=== PATIENT | male | born 1940 | race Caucasian/White ===

== ENCOUNTER → 2019-01-24 | Outpatient (CLI) | payer MEDICARE, BC ==
--- NOTE | 2019-01-24 17:40 | CONS ---
Consult Date/Type/Reason Admit Date/Time Initial Consult Date Date/Time of Note DATE: 01/24/19 TIME: 17:34 Subjective 78-year-old male 8 months status post retrograde femoral nail for distal femur fracture with intercondylar extension. Patient returns today with pain along the knee and distal femur. This has been ongoing since the original surgery. At previous visits it was believed that this was likely secondary to symptomatic hardware. He continues to have balance issues and is seeing a neurologist for this. He recently had a brain MRI. Waiting for those results. Patient's pain is along the sides of his knee and when ambulating. He feels that things are catching. No significant knee swelling. No fevers or chills. Objective Vitals Weight: 192 Height: 5 feet 11 inches Temperature: 97.9 Heart Rate: 52 Blood Pressure: 144/71 Respiratory Rate: 16 Exam General: Awake, alert, in no acute distress, pleasant and cooperative Heart: regular rhythm Lungs: breathing comfortably, no tachypnea or dyspnea MUSCULOSKELETAL: Right lower extremity: Multiple well-healed incisions over the distal femur. No erythema. No swelling. No signs of infection. Tender to palpation along distal screws and bolts. Knee range of motion is 0-100 degrees. No pain with his range of motion. Sensation decreased which is his baseline to light touch in a sural, saphenous, deep peroneal, superficial peroneal, medial and lateral plantar nerve distribution. Motor is intact, patient able to dorsiflex and plantarflex ankle and extend and flex great toe. Dorsalis Pedis pulse +2, Brisk capillary refill. Compartments are soft. Calves non-tender to palpation bilaterally. Results/Medications Imaging AP and lateral of the right femur and AP, lateral, oblique of the right knee were obtained and personally reviewed. Distal femur fracture that is completely healed status post retrograde femoral nail. 2 proximal interlocking screws with no signs of loosening or complication. Multiple distal locking screws and a bolt with no hardware complication. No sign of intracondylar extension of fracture. Assessment/Plan Hospital Course (Demo Recall) 78-year-old male 9 months status post retrograde IM nailing of right distal femur fracture with intercondylar extension. This time the fracture is completely healed. I believe the significant portion of his pain is from the distal hardware as the screws and especially the both are prominent. I did explain to the patient that there are still significant risks associated with removal of hardware including but not limited to continued pain and symptoms, inability to remove hardware, fracture, neurovascular injury, infection, need for further surgery, and medical and anesthetic complications. He understood these risks and wished to proceed with scheduling for removal of hardware of the distal interlocking screws and bolts. The patient will be on a trip during the month of February. We will plan to do this early March. ZEFERINO ENCARNACION MD January 24, 2019 17:40
--- NOTE | 2019-01-28 12:19 | RADRPT ---
PROCEDURE: XR right knee CLINICAL INDICATION: Pain. TECHNIQUE: Three views of the right knee were obtained. COMPARISON: None. FINDINGS: There are postsurgical changes of open reduction and internal fixation of the mid to distal shaft fem oral fracture with intramedullary lasha and interlocking screws. The visualized hardware is intact and well aligned. The major fracture fragments are mildly displaced and demonstrate callus formation leeann g the fracture margins representing healing. The bone mineralization is otherwise decreased. There is a small joint effusion. IMPRESSION: 1. Postsurgical changes of open reduction and internal fixation of mid to distal femoral shaft fract ure with intramedullary lasha and interlocking screws. The visualized hardware is intact. RPTAT: AA[facility] Physician Momo Date Time Electronically viewed and signed by Physician Momo on 01/28/2019 12:19 RF/
--- NOTE | 2019-01-28 12:20 | RADRPT ---
PROCEDURE: XR right femur. CLINICAL INDICATION: Pain TECHNIQUE: 2 views of the right femur were obtained. COMPARISON: None. FINDINGS: There are postsurgical changes of open reduction internal fixation of the mid to distal shaft femoral fracture with intramedullary lasha and interlocking screws. The hardware is intact and well aligned. T he major fracture fragments are mildly displaced and demonstrate bridging callus formation representi ng healing. There is no focal soft tissue swelling. IMPRESSION: 1. Postsurgical changes of open reduction and internal fixation of mid to distal shaft femoral fract ure, in good alignment. RPTAT: AAEE Physician Momo Date Time Electronically viewed and signed by Physician Momo on 01/28/2019 12:20 RF/
== END | disposition home or self-care (01) ==
LOC: HKI 14:59
PROVIDERS: ATTEND Orthopaedic Surgery Adult Reconstructive Orthopaedic Surgery
DX: M25.561 Pain in right knee (principal); S72.401D Unspecified fracture of lower end of right femur, subsequent encounter for closed fracture with routine healing; X58.XXXD Exposure to other specified factors, subsequent encounter
CPT/HCPCS: 73552; 73562; G0463

== ENCOUNTER → 2019-02-21 | Outpatient (CLI) | payer MEDICARE, BC ==
--- NOTE | 2019-02-22 14:53 | CONS ---
Consult Date/Type/Reason Admit Date/Time Initial Consult Date Date/Time of Note DATE: 02/21/19 TIME: 14:49 Subjective 78-year-old male 9 months status post retrograde femoral nail for distal femur fracture with intercondylar extension. The patient returns to clinic today to further discuss removal of hardware as he has symptomatic and painful hardware in the distal femur and knee. Patient's pain is along the sides of his knee and when ambulating. He feels that things are catching. No significant knee swelling. No fevers or chills. Patient also continues to have significant back pain and issues. Objective Vitals Weight: 192 Height: 5 foot 11 inches Temperature: 97.4 Heart Rate: 53 Blood Pressure: 139/93 Respiratory Rate: 14 Exam Exam General: Awake, alert, in no acute distress, pleasant and cooperative Heart: regular rhythm Lungs: breathing comfortably, no tachypnea or dyspnea MUSCULOSKELETAL: Right lower extremity: Multiple well-healed incisions over the distal femur. No erythema. No swelling. No signs of infection. Tender to palpation along distal screws and bolts. Knee range of motion is 0-100 degrees. No pain with his range of motion. Sensation decreased which is his baseline to light touch in a sural, saphenous, deep peroneal, superficial peroneal, medial and lateral plantar nerve distribution. Motor is intact, patient able to dorsiflex and plantarflex ankle and extend and flex great toe. Dorsalis Pedis pulse +2, Brisk capillary refill. Compartments are soft. Calves non-tender to palpation bilaterally. Assessment/Plan Hospital Course (Demo Recall) 78-year-old male 9 months status post retrograde IM nailing of right distal femur fracture with intercondylar extension. At this time the fracture is completely healed. I believe the significant portion of his pain is from the distal hardware as the screws and especially the both are prominent. I did explain to the patient that there are still significant risks associated with removal of hardware including but not limited to continued pain and symptoms, inability to remove hardware, fracture, neurovascular injury, infection, need for further surgery, and medical and anesthetic complications. He understood th shara risks and wished to proceed with scheduling for removal of hardware of the distal interlocking screws and bolts. I also reiterated to the patient that I do not believe this will significantly change his chronic weakness in his lower extremity as this may be secondary to his lower spine issues. The patient will be on a trip during the month of March. We will plan to do this early April. ZEFERINO ENCARNACION MD Feb 22, 2019 14:53
== END | disposition home or self-care (01) ==
LOC: HKI 14:17
PROVIDERS: ATTEND Orthopaedic Surgery Adult Reconstructive Orthopaedic Surgery
DX: S72.401D Unspecified fracture of lower end of right femur, subsequent encounter for closed fracture with routine healing (principal); X58.XXXD Exposure to other specified factors, subsequent encounter
CPT/HCPCS: G0463

== ENCOUNTER 2019-05-14 08:22 | Day surgery (SDC) | payer MEDICARE, BC ==
[2019-05-14] VITALS (16 sets, daily range): BP systolic 95–158; BP diastolic 45–125; PULSE 48–70; RESP 10–18; Ht 180.3 cm; Wt 94.6 kg
[~2019-05-14] VITALS: Ht 180.3 cm; Wt 94.6 kg
[~2019-05-14 08:22] MED LIST: CLON1TAB13 PO; GABA300C16 PO; LISINOPRIL PO; OXYC30TA PO; TERA5CAP3 PO; TRAZ-111 PO
[2019-05-14] MEDS ORDERED: DESFLURANE 15 MIN ONE (09:00)
[2019-05-14] MEDS ORDERED: CEFAZOLIN 1 GM INJ ONE (09:10)
[2019-05-14] MEDS ORDERED: LIDOCAINE 2% (SDV) 5 ML INJ ONE (09:10)
[2019-05-14] MEDS ORDERED: PROPOFOL 20 ML ONE (09:10)
[2019-05-14] MEDS ORDERED: HYDROmorphONE 2 MG/ML SYG ONE (09:11)
[2019-05-14] MEDS ORDERED: ROPIVACAINE 0.2% 20 ML VIAL ONE (09:17)
[2019-05-14] MEDS ORDERED: FENTAnyl 50 MCG/ML VIAL ONE (09:17)
[2019-05-14] MEDS ORDERED: MIDAZOLAM 1 MG/ML 2 ML INJ ONE (09:17)
[2019-05-14] MEDS ORDERED: POLYMYXIN/BACITRACIN 1L IRRIG ONE (09:50)
[2019-05-14] MEDS ORDERED: CEFAZOLIN 2 GM/50 ML (PMX) 50 ML IVPB ONE (10:00)
[2019-05-14] MEDS ORDERED: LACTATED RINGER'S 1,000 ML IV SCH (10:00)
[2019-05-14] MEDS ORDERED: DEXAMETHASONE 4 MG/ML 5 ML INJ ONE (10:32)
[2019-05-14] MEDS ORDERED: ONDANSETRON 4 MG INJ ONE (10:32)
[2019-05-14] MEDS ORDERED: EPHEDrine 25 MG/5 ML SYG ONE (10:33)
[2019-05-14] MEDS ORDERED: SUCCINYLCHOLINE CHLORIDE 100 MG/5 ML SYG IV ONE (10:33)
[2019-05-14] MEDS ORDERED: GLYCOPYRROLATE 0.4 MG INJ ONE (11:02)
[2019-05-14] MEDS ORDERED: LABETALOL HCL 20MG INJ IV PRN (11:30)
[2019-05-14] MEDS ORDERED: ONDANSETRON 4 MG INJ IV PRN (11:30)
[2019-05-14] MEDS ORDERED: EPHEDrine 25 MG/5 ML SYG IV PRN (11:30)
[2019-05-14] MEDS ORDERED: MEPERIDINE 25 MG INJ IV PRN (11:30)
[2019-05-14] MEDS ORDERED: hydrALAzine 20 MG INJ IV PRN (11:30)
[2019-05-14] MEDS ORDERED: HYDROmorphONE 1 MG/5 ML IV SYRINGE IV PRN ×3 (11:30)
[2019-05-14] MEDS ORDERED: OXYCODONE/ACETAMINOPHEN (5/325) TAB PO PRN ×2 (11:30)
== END 2019-05-14 15:20 | disposition home or self-care (01) ==
LOC: SDS 08:22
PROVIDERS: ATTEND Orthopaedic Surgery Adult Reconstructive Orthopaedic Surgery
DX: T84.84XD Pain due to internal orthopedic prosthetic devices, implants and grafts, subsequent encounter (principal); Y79.3 Surgical instruments, materials and orthopedic devices (including sutures) associated with adverse incidents; Y83.8 Other surgical procedures as the cause of abnormal reaction of the patient, or of later complication, without mention of misadventure at the time of the procedure; M79.661 Pain in right lower leg; I10 Essential (primary) hypertension; E11.9 Type 2 diabetes mellitus without complications
CPT/HCPCS: 82962; 86850; 86900; 86901; 87070; 87075; 87102; 87116; 88300; J0690; J1100; J1170; J2175; J2250; J2405; J2795; J3010